=== PATIENT | male | born 1980 | race Caucasian/White ===

== ENCOUNTER 2021-06-06 15:14 | Outpatient (REF) | payer MEDICAID, SELFPAY ==
[2021-06-06 18:56] LABS: Calculated LDL 122 mg/dL (<100); Cholesterol 186 mg/dL (<200); HDL Cholesterol 54 mg/dL (40-60); Triglyceride 54 mg/dL (<150)
[2021-06-06 18:59] LABS: Hemoglobin A1C 5.2 % (<5.7)
[2021-06-09 10:23] LABS: Hepatitis C Ab w Rflx HCV PCR Negative (Negative)
[2021-06-09 10:32] LABS: HIV-1/2 Ag & Ab Screen Negative (Negative)
== END 2021-06-06 15:15 | disposition home or self-care (01) ==
LOC: NCHCN 15:14
PROVIDERS: PCP Family Medicine; Visit Provider Family Medicine
DX: Z13.220 Encounter for screening for lipoid disorders (principal); Z82.49 Family history of ischemic heart disease and other diseases of the circulatory system; Z13.1 Encounter for screening for diabetes mellitus; Z83.3 Family history of diabetes mellitus; Z11.4 Encounter for screening for human immunodeficiency virus [HIV]; Z11.59 Encounter for screening for other viral diseases; Z00.00 Encounter for general adult medical examination without abnormal findings
CPT/HCPCS: 80061; 86803; 87389; 83036

== ENCOUNTER → 2022-04-10 16:45 | Outpatient (CLI) | payer MEDICAID, SELFPAY ==
--- NOTE | 2022-04-10 14:29 | DI.RAD_ITS ---
Exam(s) XR CHEST 2V PA LATERAL EXAM: XR CHEST 2V PA LATERAL CLINICAL HISTORY: ATYPICAL CHEST PAIN--R07.89. TECHNIQUE: 2D digital imaging was performed. COMPARISON: No exams were available for comparison FINDINGS: 2 views: Heart size is normal. The mediastinum is not widened. Lungs are clear. No infiltrates nor pleural effusions. IMPRESSION: No acute pulmonary findings. DATA REPOSITORY: RADIATION DOSE DELIVERED:
== END ==
PROVIDERS: PCP Family Medicine; Visit Provider Family Medicine
DX: R07.89 Other chest pain (principal)
CPT/HCPCS: 71046

== ENCOUNTER 2022-04-28 13:06 | Outpatient (CLI) | payer MEDICAID, SELFPAY ==
[2022-04-28] MEDS: Methacholine 100 MG VIAL IH (15:59)
[2022-04-28] MEDS: Albuterol HFA 18 GM 200 PUFF INH IH (15:59)
[2022-04-28] MEDS: Inhaler, Assist Device 1 EACH MC (16:00)
--- NOTE | 2022-05-12 15:08 | W.PFT ---
Date of service: 04/28/22 Time of Service: 13:09 Pulmonary Function Test Result Requesting Provider Valarei Marcano Indications: Chest pressure Interpretation Spirometry: There is no airflow limitation. There was a 6% decrease with administration of 16mg/mL methacholine. No inspiratory blunting on flow volume loop at baseline, but inspiratory loop blunting present on flow volume loop with methacholine administration. Lung Volumes: Normal lung volumes Diffusion Capacity: Normal diffusion Airway Pressure: Normal airways resistance. Impression Normal pulmonary function testing at baseline. Negative methacholine challenge. Inspiratory loop blunting with methacholine administration. This could represent vocal cord dysfunction in the correct clinical setting. Clinical Correlation therefore is recommended.
== END 2022-04-28 13:07 | disposition home or self-care (01) ==
PROVIDERS: PCP Family Medicine; Visit Provider Family Medicine
DX: R07.89 Other chest pain (principal); R06.89 Other abnormalities of breathing
CPT/HCPCS: 94060; 94070; 94726; 94729; 94010; J7674

== ENCOUNTER 2025-06-07 11:13 | Outpatient (REF) | payer SELFPAY ==
[2025-06-07 17:48] LABS: Cholesterol 187 mg/dL (<200); HDL Cholesterol 52 mg/dL (>or=40)
[2025-06-07 18:00] LABS: Hemoglobin A1C 5.2 % (<5.7)
== END 2025-06-07 11:14 | disposition home or self-care (01) ==
LOC: NCHCN 11:13
PROVIDERS: PCP Family Medicine; Visit Provider Nurse Practitioner Family
DX: Z13.1 Encounter for screening for diabetes mellitus (principal); Z13.220 Encounter for screening for lipoid disorders
CPT/HCPCS: 80061; 83036